=== PATIENT | female | born 1980 | race Caucasian/White ===

== ENCOUNTER 2019-04-05 18:33 | Emergency (ER) | payer MEDICAID ==
[~2019-04-05] VITALS: Ht 167.6 cm; Wt 64.7 kg
[~2019-04-05 18:33] MED LIST: MULT-94 PO
[2019-04-05 19:19] LABS: BASOPHILS # (AUTO) 0.06 x10^3/uL (0-0.1); BASOPHILS % (AUTO) 1 % (0-1); EOSINOPHILS # (AUTO) 0.12 x10^3/uL (0-0.4); EOSINOPHILS % (AUTO) 1 % (1-7); LYMPHOCYTES # (AUTO) 1.48 x10^3/uL (1-3.4); LYMPHOCYTES % (AUTO) 18 % (22-44); MD NO; MEAN CORPUSCULAR HEMOGLOBIN 30.1 pg (27.0-34.8); MEAN CORPUSCULAR HGB CONC 33.6 g/dL (32.4-35.8); MEAN CORPUSCULAR VOLUME 89.6 fL (80-100); MEAN PLATELET VOLUME 7.8 fL (7.4-10.4); MONOCYTES # (AUTO) 0.44 x10^3/uL (0.2-0.8); MONOCYTES % (AUTO) 5 % (2-9); NEUTROPHILS # (AUTO) 6.26 x10^3/uL (1.8-6.8); NEUTROPHILS % (AUTO) 75 % (42-75); PLATELET COUNT 346 x10^3/uL (130-400); RED BLOOD COUNT 4.58 x10^6/uL (3.82-5.3); RED CELL DISTRIBUTION WIDTH 13.1 % (9.6-15.2)
[2019-04-05 19:30] LABS: ALBUMIN 3.4 g/dL (3.4-5.0); ANION GAP 4 mmol/L (5-15); CALCIUM 8.3 mg/dL (8.5-10.1); CHLORIDE 109 mmol/L (98-107); CREATININE 0.73 mg/dL (0.55-1.02)
[2019-04-05] MEDS ORDERED: SODIUM CHLORIDE FLUSH 10ML SYR IVF ONE (19:30)
--- NOTE | 2019-04-05 20:07 | NUR ---
Patient into room, complains of left jaw pain. RN observes swelling of the left jaw. Left facial swelling is tender to the touch. Patient assessed by provider. Received orders. Orders placed for computed tomography scan with contrast. RN to bedside, informed of order and need for peripheral iv. Placed IV. Patient taken to CT, and returned. Awaiting results.
[2019-04-05 20:46] VITALS: BP 135/90
[2019-04-05] MEDS ORDERED: OXYcodone/APAP 5/325MG TABLET PO ONE (22:30)
[2019-04-05] MEDS ORDERED: AMOXICILLIN/CLAV 875-125MG TABLET PO ONE (22:30)
[2019-04-05] MEDS ORDERED: AMOXICILLIN/CLAV 875-125MG TABLET ONE (22:44)
[2019-04-05] MEDS ORDERED: OXYcodone/APAP 5/325MG TABLET ONE (22:45)
[2019-04-05] MEDS ORDERED: OMNIPAQUE 350 MG/ML, 100ML BOTTLE ONE (23:50)
== END 2019-04-05 23:24 | disposition home or self-care (01) ==
LOC: ED 19:13
DX: L03.211 Cellulitis of face (principal); K00.7 Teething syndrome; K02.9 Dental caries, unspecified; F17.200 Nicotine dependence, unspecified, uncomplicated
CPT/HCPCS: 36415; 70487; 80048; 82040; 85025; 99284; Q9967

== ENCOUNTER 2019-11-19 02:02 | Emergency (ER) | payer MEDICAID ==
[~2019-11-19] VITALS: Ht 162.6 cm; Wt 74.5 kg
[2019-11-19 02:04] VITALS: BP 159/96
[2019-11-19] MEDS ORDERED: NEOSPORIN OINT. PKT 1 PACKET ONE ×2 (02:23→02:33)
== END 2019-11-19 02:48 ==
LOC: ED 02:11
DX: L03.116 Cellulitis of left lower limb (principal); L03.115 Cellulitis of right lower limb; R50.9 Fever, unspecified; R11.2 Nausea with vomiting, unspecified; I10 Essential (primary) hypertension; F17.200 Nicotine dependence, unspecified, uncomplicated; Z72.9 Problem related to lifestyle, unspecified
CPT/HCPCS: 99283

== ENCOUNTER 2020-08-15 18:54 | Emergency (ER) | payer MEDICAID ==
[~2020-08-15] VITALS: Ht 167.6 cm; Wt 73.1 kg
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
[2020-08-15] MEDS ORDERED: DIPH,PERTUSS(ACELL),TET VAC/PF 0.5 ML IM-VACC ONE (19:30)
--- NOTE | 2020-08-15 19:33 | NUR ---
PT TO CT
--- NOTE | 2020-08-15 19:42 | NUR ---
PT BACK FROM IMAGING
--- NOTE | 2020-08-15 20:35 | NUR ---
DR. RODRIGUEZ AT BEDSIDE FOR RECHECK
--- NOTE | 2020-08-15 20:40 | NUR ---
TECH AT BEDSIDE FOR DERMABOND AT THIS TIME
[2020-08-15 20:55] VITALS: BP 146/82
--- NOTE | 2020-08-15 20:56 | NUR ---
Patient/Caregiver given discharge instructions and they have confirmed that they understand the instructions. Patient ambulatory with steady gait.
== END 2020-08-15 21:06 | disposition home or self-care (01) ==
LOC: ED 20:40
DX: S02.2XXA Fracture of nasal bones, initial encounter for closed fracture (principal); K04.7 Periapical abscess without sinus; M54.2 Cervicalgia; I10 Essential (primary) hypertension; S09.90XA Unspecified injury of head, initial encounter; Y04.0XXA Assault by unarmed brawl or fight, initial encounter; Y93.89 Activity, other specified; Y92.69 Other specified industrial and construction area as the place of occurrence of the external cause; Y99.0 Civilian activity done for income or pay
CPT/HCPCS: 70450; 70486; 72125; 99285